=== PATIENT | female | born 1965 | race Caucasian/White ===

== ENCOUNTER 2017-07-30 07:34 | Outpatient (CLI) | payer BC | END 2017-07-30 07:35 | disposition home or self-care (01) | LOC: BICMRI 07:34 | PROVIDERS: ATTEND Internal Medicine Rheumatology | DX: M47.817 Spondylosis without myelopathy or radiculopathy, lumbosacral region (principal); M48.061 Spinal stenosis, lumbar region without neurogenic claudication; M99.83 Other biomechanical lesions of lumbar region | CPT/HCPCS: 72148 ==

== ENCOUNTER 2017-08-10 15:32 | Outpatient (CLI) | payer BC | END 2017-08-10 15:33 | disposition home or self-care (01) | LOC: BICMRI 15:32 | PROVIDERS: ATTEND Internal Medicine Rheumatology | DX: M47.817 Spondylosis without myelopathy or radiculopathy, lumbosacral region (principal); M48.061 Spinal stenosis, lumbar region without neurogenic claudication | CPT/HCPCS: 72158 ==

== ENCOUNTER 2017-11-17 07:58 | Outpatient (CLI) | payer BC | END 2017-11-17 07:59 | disposition home or self-care (01) | LOC: BICMAMMO 07:58 | PROVIDERS: ATTEND Obstetrics & Gynecology | DX: Z12.31 Encounter for screening mammogram for malignant neoplasm of breast (principal) | CPT/HCPCS: 77063; 77067 ==

== ENCOUNTER 2019-12-27 14:14 | Outpatient (CLI) | payer BC ==
--- NOTE | 2019-12-27 16:50 | BD ---
Exam: DEXA Bone Density 12/27/19 HISTORY: Postmenopausal osteoporosis screening. Lumbar Spine: BMD (g/cm2) T-SCORE L1 0.703 -2.6 L2 0.760 -2.4 L3 0.964 -1.1 L4 1.070 +0.1 L1-L4 0.876 -1.6 Evidence for osteopenia with increased risk for fracture. Bone mineral density has minimally improved when compared to prior exam of 11/16/16. Left Femoral Neck: 0.735 -1.9 Total Femur: 0.797 -1.2 Evidence for osteopenia with increased risk for fracture. Impression: Bone mineral density of the left femur has slightly decreased when compared to the prior exam. FRAX Score: Major osteoporotic fracture: 14%. Hip fracture: 0.8%. POS: OFF
== END 2019-12-27 14:15 | disposition home or self-care (01) ==
LOC: BICMAMMO 14:14
PROVIDERS: ATTEND Chiropractor
DX: M85.89 Other specified disorders of bone density and structure, multiple sites (principal)
CPT/HCPCS: 77080

== ENCOUNTER 2024-04-04 10:55 | Outpatient (CLI) | payer BC | END 2024-04-04 10:56 | disposition home or self-care (01) | LOC: DTY/OP 10:55 | PROVIDERS: ATTEND Family Medicine | DX: E78.00 Pure hypercholesterolemia, unspecified (principal) | CPT/HCPCS: 97802 ==